=== PATIENT | female | born 1960 | race Two or more races ===

== ENCOUNTER → 2017-01-31 | Outpatient (CLI) | payer OTHER ==
[2016-07-07 10:45] VITALS: BP 113/64
[~2017-01-31] MED LIST: ASCO500T PO; HYDR-971 PO; OMEG500C PO; no meds
--- NOTE | 2017-02-03 09:14 | RAD ---
DATE: 01/31/2017 EXAM: DIGITAL SCREEN BILAT W/CAD HISTORY: Screening study. COMPARISON: 01/30/2016 This study was interpreted with the benefit of Computerized Aided Detection (CAD ). FINDINGS: Digital MLO and CC mammograms of both breasts were obtained. An additional CC digital mammogram of the left breast was obtained. Comparison study is dated 01/30/2016. The breast parenchyma is heterogeneously dense which can obscure a lesion on mammography (breast density code C). No spiculated mass is seen. No malignant appearing calcification or area of architectural distortion is noted. Since the previous examination there has been no significant interval change. IMPRESSION: BI-RADS Category 1, negative. There is no mammographic evidence of malignancy. Routine yearly screening mammography is recommended for follow-up. BI-RADS CATEGORY: 1 NEGATIVE RECOMMENDED FOLLOW-UP: 12M 12 MONTH FOLLOW-UP PQRS compliance statement: Patient information was entered into a reminder system with a target due date 01/31/2018 for the next mammogram. Mammography is a sensitive method for finding small breast cancers, but it does not detect them all and is not a substitute for careful clinical examination. A negative mammogram does not negate a clinically suspicious finding and should not result in delay in biopsying a clinically suspicious abnormality. "Our facility is accredited by the [employer] Mammography Program." MTDD
== END | disposition home or self-care (01) ==
LOC: MAMMO 14:45
PROVIDERS: ATTEND Family Medicine
DX: Z12.31 Encounter for screening mammogram for malignant neoplasm of breast (principal)
CPT/HCPCS: G0202; 77067

== ENCOUNTER → 2017-02-25 | Outpatient (CLI) | payer OTHER ==
[2016-07-07 10:45] VITALS: BP 113/64
[2017-02-25 08:45] LABS: BASO % 0 % (0-3); EOS % 1 % (0-3); HEMATOCRIT 41.2 % (36.0-47.0); HEMOGLOBIN 13.6 g/dL (12.0-15.5); LYMPH % 29 % (24-48); MEAN CORPUSCULAR HEMOGLOBIN 32 pg (25-35); MEAN CORPUSCULAR HGB CONC 33 g/dL (31-37); MEAN CORPUSCULAR VOLUME 95 fL (79-100); MONO % 7 % (0-9); NEUT % 63 % (31-73); PLATELET COUNT 288 x10^3/uL (140-400); RED BLOOD COUNT 4.32 x10^6/uL (3.50-5.40); RED CELL DISTRIBUTION WIDTH 12.8 % (11.5-14.5)
[2017-02-25 08:47] LABS: BILIRUBIN,URINE NEGATIVE (NEG); GLUCOSE,URINE NEGATIVE (NEG); NITRITE,URINE NEGATIVE (NEG); PROTEIN,URINE NEGATIVE (NEG-TRACE); UROBILINOGEN,URINE 0.2 mg/dL (0.2 mg/dL)
[2017-02-25 08:53] LABS: BACTERIA,URINE FEW /HPF (0-FEW); SQUAMOUS EPITHELIAL CELL,UR FEW /LPF
[2017-02-25 09:03] LABS: ALBUMIN 3.8 g/dL (3.4-5.0); ALBUMIN/GLOBULIN RATIO 1.1 (1.0-1.7); CALCIUM 8.9 mg/dL (8.5-10.1); CREATININE 0.7 mg/dL (0.6-1.0); GFR 86.2; TOTAL BILIRUBIN 1.1 mg/dL (0.2-1.0); TOTAL PROTEIN 7.4 g/dL (6.4-8.2)
[2017-02-25 09:06] LABS: CHOLESTEROL/HDL RATIO 3.6
[2017-02-25 09:12] LABS: NEG OBC FOB NEG; POS OBC FOB POS
[2017-02-26 01:11] LABS: VITAMIN D25(OH)TOTAL 61.8 ng/mL (30.0-100.0)
== END | disposition home or self-care (01) ==
LOC: LAB 06:34
PROVIDERS: ATTEND Family Medicine
DX: Z12.11 Encounter for screening for malignant neoplasm of colon (principal); R10.11 Right upper quadrant pain; E04.1 Nontoxic single thyroid nodule; E55.9 Vitamin D deficiency, unspecified; E78.5 Hyperlipidemia, unspecified
CPT/HCPCS: 36415; 80053; 80061; 81001; 82274; 82306; 83690; 84436; 84443; 84480; 85027; 87086

== ENCOUNTER → 2017-02-28 | Outpatient (CLI) | payer OTHER ==
[2016-07-07 10:45] VITALS: BP 113/64
--- NOTE | 2017-02-28 16:13 | RAD ---
Indication follow-up nodule. Grayscale imaging targeted to the thyroid was performed. Note is made of a previous examination 06/13/2016. The right lobe of the thyroid measures approximately 5.5 x 1.5 x 1.4 cm. No mass is seen. The isthmus appears normal. The left lobe of the thyroid measures 5.2 x 1.5 x 1.7 cm. Within the left lobe again seen is a heterogeneous nodule measuring approximately 1.2 cm in greatest dimension. It does not appear changed substantially when compared to the previous exam. IMPRESSION: Unchanged solitary nodule in the left lobe of the thyroid
== END | disposition home or self-care (01) ==
LOC: US 14:43
PROVIDERS: ATTEND Family Medicine
DX: E04.1 Nontoxic single thyroid nodule (principal)
CPT/HCPCS: 76536

== ENCOUNTER → 2017-03-12 | Outpatient (CLI) | payer OTHER ==
[2016-07-07 10:45] VITALS: BP 113/64
--- NOTE | 2017-03-12 09:32 | RAD ---
Abdominal ultrasound, 03/12/2017: History: Abdominal pain The gallbladder demonstrates a partial septation. No gallstones are seen. No gallbladder wall thickening is evident. The common hepatic duct is of normal caliber. There is no evidence of a hepatic mass. The visualized portions of the pancreas, spleen and both kidneys are unremarkable. The abdominal aorta is of normal caliber. The visualized portions of the inferior vena cava show no abnormality. No free fluid is evident in the abdomen. IMPRESSION: No significant abdominal abnormality is detected.
--- NOTE | 2017-03-12 12:01 | RAD ---
Indication pelvic pain. Initially transabdominal scans were obtained. Initial transabdominal scans were supplemented with transvaginal scans. It is uncertain whether the patient is pre-, jermaine . or postmenopausal. The uterus measures approximately 5.4 x 2 x 4.1 cm. Endometrial thickness is unremarkable at approximately 2.5 mm. Occasional nabothian cysts were noted during the exam. There is also a fluid collection at the fundus of the uterus measuring approximately 6 mm which may represent a degenerated fibroid. It is of doubtful clinical significance. The left ovary appeared unremarkable. The right ovary was not seen. No significant free fluid was identified. IMPRESSION: No significant finding. Nonvisualization of the right ovary. Low-density mass at the fundus of the uterus, likely incidental
== END | disposition home or self-care (01) ==
LOC: US 09:36
PROVIDERS: ATTEND Family Medicine
DX: R10.11 Right upper quadrant pain (principal); R10.2 Pelvic and perineal pain
CPT/HCPCS: 76700; 76856

== ENCOUNTER → 2017-11-28 | Outpatient (CLI) | payer OTHER | END | disposition home or self-care (01) | LOC: KCIC DEXA 09:04 | DX: N60.11 Diffuse cystic mastopathy of right breast (principal); M85.88 Other specified disorders of bone density and structure, other site; Z78.0 Asymptomatic menopausal state | CPT/HCPCS: 77066; 77080; G0279 ==

== ENCOUNTER → 2018-06-30 | Outpatient (CLI) | payer OTHER ==
[2016-07-07 10:45] VITALS: BP 113/64
[~2018-06-30] MED LIST changes: +CONTRAST GIVEN. MC PRN; +IOHEXOL 240 MG/ML 50ML VIAL. PO ONE; +IOHEXOL 300 MG/ML 100ML VIAL. IV ONE
--- NOTE | 2018-06-30 09:36 | RAD ---
PQRS Compliance Statement: One or more of the following individualized dose reduction techniques were utilized for this examination: 1. Automated exposure control 2. Adjustment of the mA and/or kV according to patient size 3. Use of iterative reconstruction technique CT abdomen/pelvis with contrast 06/30/2018 8:00 AM INDICATION: Right lower quadrant pain for 2 to 3 months. COMPARISON: None available TECHNIQUE: Multiple axial CT images of the abdomen and pelvis were obtained after the intravenous administration of 75 mL Omnipaque 300. Coronal and sagittal reformats are provided. FINDINGS: There is a 4 mm solid noncalcified pulmonary nodule in the inferior lingula (series 2, image 5). Heart size is within normal limits. In the medial segment left hepatic lobe, there is a hypoattenuating lesion with peripheral contrast puddling most suggestive of a hepatic hemangioma. This measures approximately 2.6 x 2.5 x 2.9 cm. Spleen is nonenlarged. There is a left adrenal nodule measuring 18 x 12 mm (Hounsfield units 80), which is indeterminate. The right adrenal gland is normal. Pancreas is normal in appearance. Gallbladder is present without adjacent inflammatory changes. The abdominal aorta is normal in course and caliber. There are no pathologically enlarged lymph nodes in the abdomen and pelvis. There is no abdominal free fluid. There is no free intraperitoneal air. The kidneys enhance symmetrically. There is no suspicious renal mass. There is no hydronephrosis. There are no suspected calculi within the kidneys, ureters or urinary bladder. Few scattered colonic diverticula are present. No significant inflammatory changes identified in the region of the terminal ileum. The appendix is normal in appearance. Oral contrast was administered. Opacified bowel loops demonstrate normal mucosal fold pattern. Mild bladder wall thickening may be secondary to underdistention. Uterus and adnexa appear normal. There is a superior endplate compression deformity involving L2 which appears chronic with approximately 50 percent height loss. IMPRESSION: 1. There is a 2.6 x 2.5 x 2.9 cm suspected hepatic hemangioma involving the medial segment left hepatic lobe. If there is persistent clinical concern or elevated liver function tests, this may be confirmed with MRI. 2. Terminal ileum is normal in appearance. Appendix is nondilated without adjacent inflammatory changes. 3. Chronic superior endplate compression deformity of L2 with approximately 50 percent height loss. 4. 4 mm solid noncalcified pulmonary nodule in the inferior lingula. Please refer the Fleischner 2017 pulmonary nodule guidelines for follow-up recommendations specific to this patient. Electronically signed by: Radha Aopnte MD (06/30/2018 9:33 AM) [facility]
== END | disposition home or self-care (01) ==
LOC: CT 07:27
PROVIDERS: ATTEND Internal Medicine Gastroenterology
DX: M43.8X6 Other specified deforming dorsopathies, lumbar region (principal); R91.1 Solitary pulmonary nodule; E55.9 Vitamin D deficiency, unspecified
CPT/HCPCS: 74177; Q9966; Q9967

== ENCOUNTER → 2018-07-22 | Day surgery (SDC) | payer OTHER ==
[~2018-07-22] MED LIST changes: -CONTRAST GIVEN. MC PRN; +HYDROmorphone 2 MG/ML VIAL IV PRN; -IOHEXOL 240 MG/ML 50ML VIAL. PO ONE; -IOHEXOL 300 MG/ML 100ML VIAL. IV ONE; +IV RINGERS,LACTATED 1000ML 1,000 ML IV SCH; +LIDOCAINE 1% PF 2 ML VIAL. ID PRN; +MORPHINE SULFATE 2 MG/ML VIAL. IV PRN; +ONDANSETRON PF 4 MG/2 ML VIAL. IV PRN; +PROCHLORPERAZINE 10 MG/2 ML VIAL. IV PRN; +fentaNYL PF VIAL 100 MCG/2 ML VIAL IV PRN
[2018-07-22 08:45] VITALS: BP 143/56
--- NOTE | 2018-07-22 13:07 | HP ---
ADMIT DATE: 07/22/2018 REASON FOR VISITATION: Right lower quadrant pain and bloating. HISTORY OF PRESENT ILLNESS: A 58-year-old female with past medical history noncontributory, seen with persistent right lower quadrant abdominal discomfort associated with bloating, which does now including weight loss, diarrhea, constipation. CT scan was unrevealing for intra-abdominal pathology. There has been no bleeding. Family history is unrevealing for colon cancer, colon polyp. With continued symptoms, colonoscopy is recommended. PAST MEDICAL HISTORY: Noncontributory. ALLERGIES: None. MEDICATIONS: None. SOCIAL HISTORY: Does not drink or smoke. FAMILY HISTORY: Noncontributory. REVIEW OF SYSTEMS: Per records. PHYSICAL EXAMINATION: GENERAL: Reveals a well-nourished, well-developed female, who is alert, cooperative, in no acute distress. VITAL SIGNS: Pulse 75, respirations 18. HEENT: Normocephalic and atraumatic. Pupils and extraocular muscles are not tested. Sclerae anicteric. NECK: Supple. LUNGS: Clear. CARDIOVASCULAR: Reveals an S1, S2 without S3, S4 or appreciable murmur. ABDOMEN: Reveals soft abdomen. Normoactive bowel sounds with mild right lower quadrant tenderness to palpation. EXTREMITIES: Reveal no cyanosis, clubbing or edema. IMPRESSION: Right lower quadrant abdominal pain, etiology is to be determined. Differential includes inflammatory bowel disease, chronic appendicitis, IBS, colon cancer. Therefore, recommend colonoscopy to further assess. Risks and benefits have been discussed. The patient is willing to proceed at this time. RAGHAVENDRA WHEELER MD DR: DIANNE/sarah JOB#: [id number] / [id number] ecc RECORDS, MEDICAL
--- NOTE | 2018-07-23 14:11 | PATHOLOGY ---
[facility] Accession Number: [id number] . 01 Material submitted: . PART A: SIGMOID POLYP PART B: DESCENDING COLON POLYP . 01 Clinician provided ICD-10: R10.31 . 01 Clinical history: . RLQ pain . 02 Diagnosis: A. Colon biopsy, sigmoid polyp: - Tubular adenoma. . B. Colon biopsy, descending colon polyp: - Tubular adenoma. (JPM:familia; 07/23/2018) QMS/07/23/2018 . 02 Comment: There is no high-grade dysplasia or evidence of malignancy. . 02 Electronically signed: . Elmer Montemayor MD, Pathologist NPI- [id number] . 01 Gross description: . A. The specimen is received in formalin, labeled "Naghipouraghda, Nayere, sigmoid polyp" and consists of a fragment soft brown tissue measuring 0.3 x 0.2 x 0.2 cm which is entirely submitted in A1. . B. The specimen is received in formalin, labeled "Naghipouraghda, Nayere, descending colon polyp" and consists of a fragment soft guevara tissue measuring 0.3 x 0.3 x 0.2 cm which is entirely submitted in B1. (SDY; 07/22/2018) SYU/SYU . 02 Pathologist provided ICD-10: D12.5, D12.4 . 02 CPT . 010973, [id number] Specimen Comment: A courtesy copy of this report has been sent to Specimen Comment: [phone], . Specimen Comment: Report sent to / DR CARRASQUILLO Specimen Comment: A duplicate report has been generated due to demographic updates. Performed at: [address] [place] [address] [facility] [address], [place], [place] [id number] MD Nathaniel Herring MD Phone: [phone] Performed at: [address] [id number] MD Elmer Montemayor MD Phone: [phone]
== END | disposition home or self-care (01) ==
LOC: SURG 06:59
PROVIDERS: ATTEND Internal Medicine Gastroenterology
DX: D12.4 Benign neoplasm of descending colon (principal); D12.5 Benign neoplasm of sigmoid colon; K64.0 First degree hemorrhoids; K21.9 Gastro-esophageal reflux disease without esophagitis; Z79.899 Other long term (current) drug therapy
CPT/HCPCS: 45380; 45385; 88305

== ENCOUNTER → 2018-07-31 | Outpatient (CLI) | payer OTHER ==
[2018-07-22 08:45] VITALS: BP 143/56
[~2018-07-31] MED LIST changes: -HYDROmorphone 2 MG/ML VIAL IV PRN; -IV RINGERS,LACTATED 1000ML 1,000 ML IV SCH; -LIDOCAINE 1% PF 2 ML VIAL. ID PRN; -MORPHINE SULFATE 2 MG/ML VIAL. IV PRN; -ONDANSETRON PF 4 MG/2 ML VIAL. IV PRN; -PROCHLORPERAZINE 10 MG/2 ML VIAL. IV PRN; +PROPOFOL 20 ML IV ONE; -fentaNYL PF VIAL 100 MCG/2 ML VIAL IV PRN
--- NOTE | 2018-07-31 16:53 | RAD ---
Thyroid ultrasound, 07/31/2018: HISTORY: Left thyroid nodule The right lobe of the gland measures 5.5 x 1.7 x 1.5 cm while the left lobe of the gland measures 5.4 x 1.8 x 1.6 cm. There is a heterogeneous solid nodule in the lower pole of the left lobe of the gland which measures 1.7 x 1.4 x 0.9 cm. Some of its margins are smooth while others are less clearly defined. The nodule is wider than tall. It appears to have increased in size since 02/28/2017 at which time it measured 1.1 x 1.2 x 0.5 cm. The gland is mildly heterogeneous. No other discrete nodule is seen. IMPRESSION: Enlarging solid nodule in the left lobe of the gland as described above. While its sonographic characteristics are nonspecific, the enlargement is of some concern. Ultrasound-guided biopsy is suggested for further evaluation. Electronically signed by: Atul Johnston MD (07/31/2018 4:51 PM) [facility]
== END | disposition home or self-care (01) ==
LOC: US 14:31
PROVIDERS: ATTEND Internal Medicine
DX: E04.1 Nontoxic single thyroid nodule (principal)
CPT/HCPCS: 76536; J2704

== ENCOUNTER → 2018-12-21 | Outpatient (CLI) | payer OTHER ==
[2018-07-22 08:45] VITALS: BP 143/56
[~2018-12-21] MED LIST changes: +HYDR-3164 PO; -HYDR-971 PO; -PROPOFOL 20 ML IV ONE
== END | disposition home or self-care (01) ==
LOC: LAB 14:05
PROVIDERS: ATTEND Obstetrics & Gynecology
DX: R35.0 Frequency of micturition (principal)
CPT/HCPCS: 87086

== ENCOUNTER → 2019-01-08 | Outpatient (CLI) | payer OTHER ==
[2018-07-22 08:45] VITALS: BP 143/56
--- NOTE | 2019-01-08 14:03 | RAD ---
PQRS Compliance statement: One or more of the following individualized dose reduction techniques were utilized for this examination: 1. Automated exposure control. 2. Adjustment of the mA and/or kV according to patient size. 3. Use of iterative reconstruction technique. Indication:LUNG NODULE NO PRIORS TECHNIQUE: CT chest none IV contrast with multiplanar reformats. COMPARISON:None FINDINGS: Heart is normal in size. No pericardial or pleural effusion. No enlarged axillary, mediastinal adenopathy. Evaluation of hilar lymphadenopathy is limited due to lack of IV contrast. Central airways are patent. 3 mm nodule in the right lower lobe (series 2 image 42). 4 mm nodular opacity in the right middle lobe (series 2 image 47). 3 mm ground glass nodule in the subpleural left lower lobe (series 2 image 50). mm nodular opacity in the lingula (series 2 image 36). Noncontrast appearance of the liver, spleen, kidneys, pancreas within normal limits. Left adrenal gland nodule is seen measuring 1.8 cm compatible with adrenal adenoma.. No suspicious bony lesion. Stable mild anterior compression deformity of the L1 vertebral body. IMPRESSION: Bilateral nodular opacities/nodules as described above. Follow-up CT chest in 6 months recommended. Electronically signed by: Nando Motley DO (01/08/2019 2:00 PM) [facility]
== END | disposition home or self-care (01) ==
LOC: CT 14:52
PROVIDERS: ATTEND Internal Medicine Critical Care Medicine
DX: R91.8 Other nonspecific abnormal finding of lung field (principal); M43.8X6 Other specified deforming dorsopathies, lumbar region; E27.8 Other specified disorders of adrenal gland
CPT/HCPCS: 71250

== ENCOUNTER → 2019-01-22 | Outpatient (CLI) | payer OTHER ==
[2018-07-22 08:45] VITALS: BP 143/56
--- NOTE | 2019-01-22 13:58 | RAD ---
DATE: 01/22/2019 EXAM: MAMMO ENRIQUETA SCREENING BILATERAL HISTORY: Routine screening COMPARISON: 11/28/2017 This study was interpreted with the benefit of Computerized Aided Detection (CAD). Breast Density: HETERO The breast parenchyma is heterogenously dense, which could reduce sensitivity of mammography. Breast parenchyma level C. FINDINGS: 2-D and 3-D tomosynthesis imaging was performed in CC and MLO projections. Benign-appearing lymph node type densities are again noted laterally on the left. No new or enlarging breast densities are seen. No suspicious microcalcifications are evident. IMPRESSION: Stable mammograms without evidence of malignancy. BI-RADS CATEGORY: 2 BENIGN FINDING(S) RECOMMENDED FOLLOW-UP: 12M 12 MONTH FOLLOW-UP PQRS compliance statement: Patient information was entered into a reminder system with a target due date for the next mammogram. Mammography is a sensitive method for finding small breast cancers, but it does not detect them all and is not a substitute for careful clinical examination. A negative mammogram does not negate a clinically suspicious finding and should not result in delay in biopsying a clinically suspicious abnormality. "Our facility is accredited by the [employer] Mammography Program."
== END | disposition home or self-care (01) ==
LOC: MAMMO 12:45
PROVIDERS: ATTEND Internal Medicine
DX: Z12.31 Encounter for screening mammogram for malignant neoplasm of breast (principal)
CPT/HCPCS: 77063; 77067

== ENCOUNTER → 2019-02-18 | Outpatient (CLI) | payer OTHER ==
[2018-07-22 08:45] VITALS: BP 143/56
--- NOTE | 2019-02-18 16:33 | RAD ---
EXAM: Thyroid sonogram. HISTORY: Thyroid nodule. TECHNIQUE: Sonographic imaging of the thyroid was performed.. COMPARISON: 07/31/2018. FINDINGS: The right there are lobe measures 5.2 x 1.7 x 1.8 cm. The left thyroid lobe measures 5.2 x 1.8 x 1.3 cm. The isthmus measures 3.6 mm. There is a heterogeneous predominantly solid hypoechoic nodule containing echogenic foci which may be due to microcalcifications within the inferior left thyroid lobe measuring 1.3 x 1.1 x 0.6 cm. This previously measured 1.7 x 1.5 x 0.9 cm. There is adjacent heterogeneous parenchyma within the mid left thyroid lobe. No additional discrete nodule is seen. IMPRESSION: Slight decreased size of a heterogeneous nodule within the inferior left thyroid lobe measuring 1.3 cm in maximum dimension, allowing for differences in measurement technique. There is stable adjacent heterogeneous bright within the mid zone of the left thyroid lobe. No additional discrete thyroid lesion is seen. Electronically signed by: Rafia Dc MD (02/18/2019 4:30 PM) [place] [id number]
== END | disposition home or self-care (01) ==
LOC: US 15:34
PROVIDERS: ATTEND Internal Medicine
DX: E04.1 Nontoxic single thyroid nodule (principal)
CPT/HCPCS: 76536

== ENCOUNTER → 2019-04-30 | Outpatient (CLI) | payer OTHER ==
[2018-07-22 08:45] VITALS: BP 143/56
[2019-04-30 07:10] LABS: BASO % 1 % (0-3); EOS # 0.1 x10^3/uL (0.0-0.7); EOS % 2 % (0-3); HEMATOCRIT 40.3 % (36.0-47.0); HEMOGLOBIN 13.5 g/dL (12.0-15.5); LYMPH # 2.4 x10^3/uL (1.0-4.8); LYMPH % 33 % (24-48); MEAN CORPUSCULAR HEMOGLOBIN 32 pg (25-35); MEAN CORPUSCULAR HGB CONC 34 g/dL (31-37); MEAN CORPUSCULAR VOLUME 96 fL (79-100); MONO # 0.5 x10^3/uL (0.0-1.1); MONO % 8 % (0-9); NEUT # 4.1 x10^3/uL (1.8-7.7); NEUT % 57 % (31-73); PLATELET COUNT 284 x10^3/uL (140-400); RED CELL DISTRIBUTION WIDTH 13.3 % (11.5-14.5); WHITE BLOOD COUNT 7.2 x10^3/uL (4.0-11.0)
[2019-04-30 07:20] LABS: ALBUMIN 3.6 g/dL (3.4-5.0); ALBUMIN/GLOBULIN RATIO 1.1 (1.0-1.7); CALCIUM 8.8 mg/dL (8.5-10.1); CREATININE 0.7 mg/dL (0.6-1.0); GFR 85.6; TOTAL BILIRUBIN 0.7 mg/dL (0.2-1.0)
[2019-04-30 07:27] LABS: BILIRUBIN,URINE NEGATIVE (NEG); CLARITY,URINE CLEAR; COLOR,URINE YELLOW; NITRITE,URINE NEGATIVE (NEG); PH,URINE 7.5; PROTEIN,URINE NEGATIVE (NEG-TRACE); UROBILINOGEN,URINE 0.2 mg/dL (0.2 mg/dL)
[2019-04-30 07:51] LABS: BACTERIA,URINE 0 /HPF (0-FEW); RBC,URINE 0 /HPF (0-2); SQUAMOUS EPITHELIAL CELL,UR MANY /LPF
[2019-05-01 00:07] LABS: HEMOGLOBIN A1C 5.5 % (4.8-5.6)
== END | disposition home or self-care (01) ==
LOC: LAB 06:27
PROVIDERS: ATTEND Internal Medicine
DX: Z00.00 Encounter for general adult medical examination without abnormal findings (principal)
CPT/HCPCS: 36415; 80053; 80061; 81001; 83036; 84443; 85025

== ENCOUNTER → 2019-06-07 | Outpatient (CLI) | payer OTHER ==
[2018-07-22 08:45] VITALS: BP 143/56
--- NOTE | 2019-06-07 15:36 | RAD ---
EXAM: Pelvic sonogram. HISTORY: Right lower quadrant pain. TECHNIQUE: Transabdominal and transvaginal sonographic imaging of the pelvis was performed. COMPARISON: CT dated 01/08/2019. FINDINGS: The uterus measures 5.9 x 3.8 x 2.5 cm. The endometrial stripe measures 2 mm in thickness. There is a 5 mm suspected cyst within the anterior uterine fundus or associated with the endometrium. The ovaries are normal in size and demonstrate normal blood flow. There is nabothian cysts within the cervix measuring 7 mm. There is no pelvic free fluid. IMPRESSION: 1. Thin endometrial stripe. There is a suspected 5 mm cyst along the anterior endometrium. 2. Sonographically unremarkable ovaries. 3. Nabothian cyst within the cervix. Electronically signed by: Rafia Dc MD (06/07/2019 3:33 PM) [id number]
== END | disposition home or self-care (01) ==
LOC: US 15:26
PROVIDERS: ATTEND Obstetrics & Gynecology
DX: N88.8 Other specified noninflammatory disorders of cervix uteri (principal)
CPT/HCPCS: 76830; 76856

== ENCOUNTER → 2019-09-20 | Outpatient (CLI) | payer OTHER ==
[2018-07-22 08:45] VITALS: BP 143/56
[~2019-09-20] MED LIST changes: +ASCO-219 PO; -ASCO500T PO
--- NOTE | 2019-09-21 09:02 | RAD ---
Clinical indications: Follow-up of thyroid nodule COMPARISON: February 18, 2019.. Findings: The longitudinal and AP and transverse dimensions of the right lobe of the thyroid gland are 5.2 cm x 1.7 cm x 1.5 cm respectively. The right lobe is homogeneous in appearance. The longitudinal and AP and transverse dimensions of the left lobe are 5.6 cm x 1.8 cm x 1.5 cm respectively. There is a small complex mainly isoechoic solid nodule within the lower pole measuring 14 mm x 7 mm x 13 mm in size. It measured 13 mm x 6 mm x 11 mm previously. Therefore, there has been no significant change in size given differences in the way the nodule is measured between studies. No calcifications are seen within it. This is a ACR TI RADS lesion 3. The isthmus is homogeneous in appearance and measures 0.34 cm in thickness. Impression: No significant change in size of nodule of the left lobe of the thyroid gland. Reference: ACR thyroid imaging, reporting and data system (TI-RADS): White paper of the ACR TI-RADS committee; J[employer]RNAL OF THE [employer]; volume 14, issue 5, pages 587-595 (February 2017) Electronically signed by: Linden Peralta MD (09/21/2019 8:59 AM) [facility]
== END | disposition home or self-care (01) ==
LOC: US 06:11
PROVIDERS: ATTEND Internal Medicine
DX: E04.1 Nontoxic single thyroid nodule (principal); Z79.899 Other long term (current) drug therapy
CPT/HCPCS: 76536

== ENCOUNTER → 2019-11-25 | Outpatient (CLI) | payer OTHER ==
[2018-07-22 08:45] VITALS: BP 143/56
[2019-11-25 07:03] LABS: BASO % 1 % (0-3); EOS # 0.1 x10^3/uL (0.0-0.7); EOS % 1 % (0-3); HEMATOCRIT 41.5 % (36.0-47.0); LYMPH # 1.8 x10^3/uL (1.0-4.8); LYMPH % 33 % (24-48); MEAN CORPUSCULAR HEMOGLOBIN 32 pg (25-35); MEAN CORPUSCULAR HGB CONC 34 g/dL (31-37); MEAN CORPUSCULAR VOLUME 96 fL (79-100); MONO # 0.5 x10^3/uL (0.0-1.1); MONO % 9 % (0-9); NEUT # 3.1 x10^3/uL (1.8-7.7); NEUT % 56 % (31-73); PLATELET COUNT 286 x10^3/uL (140-400); RED BLOOD COUNT 4.32 x10^6/uL (3.50-5.40); RED CELL DISTRIBUTION WIDTH 12.4 % (11.5-14.5); WHITE BLOOD COUNT 5.5 x10^3/uL (4.0-11.0)
[2019-11-25 07:04] LABS: BILIRUBIN,URINE NEGATIVE (NEG); CLARITY,URINE CLEAR; COLOR,URINE YELLOW; NITRITE,URINE NEGATIVE (NEG); PROTEIN,URINE NEGATIVE (NEG-TRACE); UROBILINOGEN,URINE 0.2 mg/dL (0.2 mg/dL)
[2019-11-25 07:10] LABS: ALBUMIN 3.8 g/dL (3.4-5.0); ALBUMIN/GLOBULIN RATIO 1.1 (1.0-1.7); CALCIUM 8.8 mg/dL (8.5-10.1); CREATININE 0.7 mg/dL (0.6-1.0); GFR 85.4; POTASSIUM 3.9 mmol/L (3.5-5.1); TOTAL BILIRUBIN 0.9 mg/dL (0.2-1.0); TOTAL PROTEIN 7.2 g/dL (6.4-8.2)
[2019-11-25 07:16] LABS: CHOLESTEROL/HDL RATIO 2.6
[2019-11-25 07:21] LABS: BACTERIA,URINE FEW /HPF (0-FEW); SQUAMOUS EPITHELIAL CELL,UR MOD /LPF
[2019-11-25 23:07] LABS: HEMOGLOBIN A1C 5.6 % (4.8-5.6)
== END | disposition home or self-care (01) ==
LOC: LAB 06:31
PROVIDERS: ATTEND Internal Medicine
DX: Z00.00 Encounter for general adult medical examination without abnormal findings (principal); E55.9 Vitamin D deficiency, unspecified
CPT/HCPCS: 36415; 80053; 80061; 81001; 82306; 83036; 84443; 85025

== ENCOUNTER → 2020-04-07 | Outpatient (CLI) | payer OTHER ==
[2018-07-22 08:45] VITALS: BP 143/56
[~2020-04-07] MED LIST changes: -ASCO-219 PO; +ASCO500T53 PO
--- NOTE | 2020-04-07 15:56 | RAD ---
EXAM: CT CHEST WITHOUT CONTRAST HISTORY: Lung nodule COMPARISON: CT chest 01/08/2019 TECHNIQUE: Helical CT of the chest performed without contrast. Coronal and sagittal reformats were obtained. One or more of the following individualized dose reduction techniques were utilized for this examination: 1. Automated exposure control 2. Adjustment of the mA and/or kV according to patient size 3. Use of iterative reconstruction technique. FINDINGS: Thyroid gland and thoracic inlet: Unremarkable. Heart and great vessels: Heart is normal in size. No pericardial effusion. Thoracic aorta is normal in caliber. Mediastinum and gissell: No lymphadenopathy. Lungs and pleura: Two 3 mm pulmonary nodules in the left upper lobe are unchanged (image 185 and 201, series 8). A 3 mm pulmonary nodule in the right lower lobe is unchanged (image 185 series 8). Additional 3 mm pulmonary nodule in the subpleural left lower lobe is unchanged (image 236, series 8). A 4 mm for nodule in the right middle lobe is unchanged (image 202, series 8). No new pulmonary nodule. Airways are clear. No pleural effusion. Chest wall and axillae: Normal. Upper abdomen: A 2.3 cm hypodense mass in segment IVb of the liver is unchanged in size. This previously had the appearance of a hemangioma with the administration of contrast. 1.5 cm left adrenal adenoma unchanged. Bones: An L1 compression fracture with moderate height loss is unchanged. No acute fracture. IMPRESSION: 1. There are few bilateral pulmonary nodules measuring 3 to 4 mm. These have been stable for over 12 months. No further follow-up indicated based on Fleischner Society guidelines. 2. Unchanged 2.3 similar hypodense mass in the liver, previously with the appearance of a hemangioma. Unchanged left adrenal adenoma. 3. Unchanged old L1 compression fracture. According to Fleischner Society Guidelines for solid pulmonary nodules (Radiology 2017; 000:1?16): In low risk multiple nodule patient: <6mm - No follow up required. 6-8mm - CT at 6-12 months, then consider CT at 18-24 months >8mm - CT at 6-12 months, then consider CT at 18-24 months Use most suspicious nodule as guide to management. Follow-up intervals may vary according to size and risk In high risk multiple nodule patient: <6mm - Optional 12 month follow up. 6-8mm - CT at 3-6 months, then CT at 18-24 months >8mm - CT at 3-6 months, then CT at 18-24 months Use most suspicious nodule as guide to management. Follow-up intervals may vary according to size and risk. Electronically signed by: Penny Barrios MD (04/07/2020 3:54 PM) [id number]
== END | disposition home or self-care (01) ==
LOC: CT 14:44
PROVIDERS: ATTEND Internal Medicine Critical Care Medicine
DX: R91.8 Other nonspecific abnormal finding of lung field (principal); M48.56XA Collapsed vertebra, not elsewhere classified, lumbar region, initial encounter for fracture; R16.0 Hepatomegaly, not elsewhere classified
CPT/HCPCS: 71250

== ENCOUNTER → 2020-04-11 | Outpatient (CLI) | payer OTHER ==
[2018-07-22 08:45] VITALS: BP 143/56
--- NOTE | 2020-04-12 11:47 | RAD ---
DATE: 04/11/2020 12:22 PM EXAM: MAMMO ENRIQUETA SCREENING BILATERAL HISTORY: Screening COMPARISON: 01/22/2019 Bilateral CC and MLO views of the breasts were performed. Bilateral breast tomosynthesis was performed in CC and MLO projections. This study was interpreted with the benefit of Computerized Aided Detection (CAD). FINDINGS: Breast Density: HETERO The breast parenchyma Is heterogeneously dense, which could reduce sensitivity of mammography. Breast parenchyma level C No suspicious masses, microcalcifications or architectural distortion is present to suggest malignancy in either breast. The visualized axillae are unremarkable. IMPRESSION: No mammographic evidence of malignancy. BI-RADS CATEGORY: 1 NEGATIVE RECOMMENDED FOLLOW-UP: 12M 12 MONTH FOLLOW-UP Annual screening mammography is recommended, unless clinically indicated sooner based on symptoms or change in physical exam. PQRS compliance statement: Patient information was entered into a reminder system with a target due date 04/12/2021 for the next mammogram. Mammography is a sensitive method for finding small breast cancers, but it does not detect them all and is not a substitute for careful clinical examination. A negative mammogram does not negate a clinically suspicious finding and should not result in delay in biopsying a clinically suspicious abnormality. "Our facility is accredited by the [employer] Mammography Program."
== END | disposition home or self-care (01) ==
LOC: MAMMO 15:30
PROVIDERS: ATTEND Obstetrics & Gynecology
DX: Z12.31 Encounter for screening mammogram for malignant neoplasm of breast (principal)
CPT/HCPCS: 77063; 77067

== ENCOUNTER → 2020-06-20 | Outpatient (CLI) | payer OTHER ==
[2018-07-22 08:45] VITALS: BP 143/56
[~2020-06-20] MED LIST changes: +SINCALIDE 1.18 MCG in IV NORMAL SALINE 50ML 30 ML IV ONE
--- NOTE | 2020-06-20 15:23 | RAD ---
HEPATOBILIARY SCAN WITH EJECTION FRACTION 06/20/2020 3:19 PM History: Nausea and vomiting. Reason: N/V / Spl. Instructions: / History: Procedure: Serial static images are obtained of the liver and biliary system in the frontal projection following IV administration of 5.5 mCi of Technetium 99m Choletec. After filling of the gallbladder, 1.2 mcg of sincalide were infused over 30 minutes and dynamic imaging continued over this period. The gallbladder ejection fraction was calculated. Findings: There is prompt hepatic clearance of tracer from the blood pool. There is homogeneous distribution throughout the liver. The gallbladder ejection fraction measures 97% (normal gallbladder EF is 35% or greater). IMPRESSION: 1. The cystic duct and common bile duct are patent. Negative for acute cholecystitis. 2. The gallbladder ejection fraction is normal Electronically signed by: Jose Elias Mathias MD (06/20/2020 3:20 PM) [id number]
== END | disposition home or self-care (01) ==
LOC: NM 08:44
PROVIDERS: ATTEND Internal Medicine Gastroenterology
DX: R11.2 Nausea with vomiting, unspecified (principal)
CPT/HCPCS: 78227; A9537; J2805

== ENCOUNTER → 2020-07-31 | Outpatient (CLI) | payer OTHER ==
[2018-07-22 08:45] VITALS: BP 143/56
[~2020-07-31] MED LIST changes: -SINCALIDE 1.18 MCG in IV NORMAL SALINE 50ML 30 ML IV ONE
== END ==
LOC: LAB 11:43
PROVIDERS: ATTEND Internal Medicine Gastroenterology
DX: Z01.812 Encounter for preprocedural laboratory examination (principal); Z20.828 Contact with and (suspected) exposure to other viral communicable diseases; R10.9 Unspecified abdominal pain
CPT/HCPCS: U0003-CS

== ENCOUNTER → 2020-08-02 | Day surgery (SDC) | payer OTHER ==
[~2020-08-02] MED LIST changes: +IV RINGERS,LACTATED 1000ML 1,000 ML IV SCH; +LIDOCAINE 2% PF 5 ML VIAL. ONE; +PROPOFOL 10 MG/ML (20ML) VIAL. IV ONE
[2020-08-02 09:02] VITALS: BP 106/67
--- NOTE | 2020-08-02 10:11 | HP ---
ADMIT DATE: 08/02/2020 REFERRING PHYSICIAN: Milena Alanis MD. HISTORY OF PRESENT ILLNESS: A 60-year-old female with past medical history significant for colon polyps, seen with epigastric and right upper quadrant abdominal pain. Had intermittent episodes of some emesis with the pain. No food intolerances are noted. No family history of gallbladder disease. Weight and appetite are stable. With the continued issues, she requests additional evaluation. Previous gallbladder workup has been unrevealing. PAST MEDICAL HISTORY: Colonic polyps, right upper quadrant pain, epigastric pain. ALLERGIES: None. MEDICATIONS: None. FAMILY AND SOCIAL HISTORY: She does not drink or smoke. She is employed at the hospital. REVIEW OF SYSTEMS: Per records. PHYSICAL EXAMINATION: GENERAL: Reveals a well-nourished, well-developed female. VITAL SIGNS: Temp is 97.8, pulse 76, respiratory rate 20. LUNGS: Clear. CARDIOVASCULAR: Reveals an S1, S2 without S3, S4 or appreciable murmur. ABDOMEN: Reveals a soft abdomen, normal bowel sounds, without appreciable hepatosplenomegaly. EXTREMITIES: Reveals no cyanosis, clubbing, or edema. IMPRESSION: Epigastric abdominal pain, etiology is to be determined. Differential includes gastroparesis, celiac disease, malignancy. Hepatobiliary disease is less likely in view of previous negative workup with imaging studies. Upper endoscopy is recommended. Risks and benefits of the procedure including risk of hemorrhage and perforation have been discussed with the patient who is willing to proceed at this time. RAGHAVENDRA WHEELER MD DR: DIANNE/sarah JOB#: [id number] / [id number]
--- NOTE | 2020-08-04 13:08 | PATHOLOGY ---
[facility] Accession Number: [id number] . 01 Material submitted: . duodenum - DUODENAL BX'S . 01 Clinical history: . ABD PAIN, N/V . 02 Diagnosis: Small bowel "duodenum", endoscopic biopsy: - Duodenal mucosa demonstrating Humera's gland hyperplasia; negative for dysplasia and malignancy. (MLK:pit; 08/04/2020) QTP 08/04/2020 1232 Local . 02 Electronically signed: . Mariajose Pack MD, Pathologist NPI- [id number] . 01 Gross description: . The specimen is received in formalin, labeled "Akashe Songagfrancoa, duodenal biopsies". Received are multiple segments of pale guevara soft tissue ranging in size from 0.2 to 0.4 cm in maximum dimensions. The specimen is submitted entirely in cassette A1. ([facility]; 08/02/2020) QA/QA 08/02/2020 1751 Local . 02 Pathologist provided ICD-10: R10.9 . 02 CPT . 215710 Specimen Comment: A courtesy copy of this report has been sent to [phone], [phone] Specimen Comment: [id number] Specimen Comment: Report sent to / DR CARRASQUILLO Performed at: 01 [facility] [address], [place], [place] [id number] MD Nathaniel Herring MD Phone: [phone] Performed at: 02 [facility] [address] [place] [address], [place] [id number] MD Elmer Montemayor MD Phone: [phone]
== END ==
LOC: ENDOS 07:31
PROVIDERS: ATTEND Internal Medicine Gastroenterology
DX: R10.13 Epigastric pain (principal); K90.0 Celiac disease; K31.84 Gastroparesis; E78.5 Hyperlipidemia, unspecified; K21.9 Gastro-esophageal reflux disease without esophagitis; Z86.010 Personal history of colon polyps; Z79.899 Other long term (current) drug therapy
CPT/HCPCS: 43239; 87426; 88305; J2704

== ENCOUNTER → 2021-02-02 | Outpatient (CLI) | payer OTHER ==
[2020-08-02 09:02] VITALS: BP 106/67
[~2021-02-02] MED LIST changes: -IV RINGERS,LACTATED 1000ML 1,000 ML IV SCH; -LIDOCAINE 2% PF 5 ML VIAL. ONE; -PROPOFOL 10 MG/ML (20ML) VIAL. IV ONE
[2021-02-02 08:45] LABS: BASO % 0 % (0-3); EOS # 0.1 x10^3/uL (0.0-0.7); EOS % 1 % (0-3); HEMATOCRIT 39.3 % (36.0-47.0); HEMOGLOBIN 13.1 g/dL (12.0-15.5); LYMPH # 1.7 x10^3/uL (1.0-4.8); LYMPH % 31 % (24-48); MEAN CORPUSCULAR HEMOGLOBIN 32 pg (25-35); MEAN CORPUSCULAR HGB CONC 34 g/dL (31-37); MEAN CORPUSCULAR VOLUME 95 fL (79-100); MONO # 0.5 x10^3/uL (0.0-1.1); MONO % 8 % (0-9); NEUT # 3.3 x10^3/uL (1.8-7.7); NEUT % 60 % (31-73); PLATELET COUNT 257 x10^3/uL (140-400); RED BLOOD COUNT 4.14 x10^6/uL (3.50-5.40); WHITE BLOOD COUNT 5.6 x10^3/uL (4.0-11.0)
[2021-02-02 09:05] LABS: ALBUMIN 4.2 g/dL (3.4-5.0); ALBUMIN/GLOBULIN RATIO 1.3 (1.0-1.7); CALCIUM 8.7 mg/dL (8.5-10.1); CREATININE 0.6 mg/dL (0.6-1.0); GFR 101.6; POTASSIUM 3.9 mmol/L (3.5-5.1); TOTAL BILIRUBIN 1.4 mg/dL (0.2-1.0); TOTAL PROTEIN 7.4 g/dL (6.4-8.2)
[2021-02-02 09:06] LABS: CHOLESTEROL/HDL RATIO 2.7
[2021-02-02 10:56] LABS: BILIRUBIN,URINE NEGATIVE (NEG); CLARITY,URINE CLEAR; COLOR,URINE YELLOW; NITRITE,URINE NEGATIVE (NEG); PH,URINE 5.5 (<5.0-8.0); PROTEIN,URINE NEGATIVE (NEG-TRACE); UROBILINOGEN,URINE 0.2 mg/dL (0.2 mg/dL)
[2021-02-02 11:16] LABS: BACTERIA,URINE 0 /HPF (0-FEW); RBC,URINE 0 /HPF (0-2); WBC,URINE 0 /HPF (0-4)
[2021-02-03 01:13] LABS: HEMOGLOBIN A1C 5.6 % (4.8-5.6)
== END ==
LOC: LAB 06:50
PROVIDERS: ATTEND Internal Medicine
DX: Z00.00 Encounter for general adult medical examination without abnormal findings (principal); E55.9 Vitamin D deficiency, unspecified
CPT/HCPCS: 36415; 80053; 80061; 81001; 82306; 83036; 84443; 85025

== ENCOUNTER → 2021-02-08 | Outpatient (CLI) | payer OTHER ==
[2020-08-02 09:02] VITALS: BP 106/67
--- NOTE | 2021-02-08 15:57 | KCIC ---
Bilateral digital screening mammograms with 3-D tomosynthesis: Reason for examination: Routine screening. Comparison is made to previous studies dated back to 01/30/2016. Bilateral mammograms in CC and oblique projections were obtained with 2-D imaging and 3-D tomosynthes is imaging on a Siemens Inspiration unit and reviewed on the workstation. Interpretation was made wit h the benefit of CAD. The skin and nipples show no abnormalities. No abnormal axillary lymph nodes are seen. The breast par enchyma is extremely dense. (Breast density: Category D.) There are no dominant masses, suspicious ca lcifications or architectural distortion. Impression: No evidence of malignancy. Recommend routine screening. Your patient's mammogram demonstrates that she has dense breast tissue (breast density category C or D), which could hide abnormalities, and if she has other risk factors for breast cancer that have bee n identified, she might benefit from supplemental screening tests that may be suggested by you as her ordering physician. Dense breast tissue, in and of itself, is a relatively common condition. Therefo re, this information is not provided to cause undue concern, but rather to raise your awareness and t o promote discussion with your patient regarding the presence of other risk factors, in addition to d ense breast tissue. Your patient's mammography results will be sent to her. BI-RAD Category 1: Negative. "Our facility is accredited by the [employer] Mammography Program." This patient's information has been entered into a reminder system for the patient to be notified wit h the results of her examination and a target date for the next mammogram. Electronically signed by: Geraldine Coley MD (02/08/2021 3:55 PM) [id number]
--- NOTE | 2021-02-09 08:25 | KCIC ---
EXAM: DUAL ENERGY X-RAY ABSORPTIOMETRY (DEXA). HISTORY: Postmenopausal screening. FINDINGS: The lowest measured T-score is -1.6 in the left hip, based on a bone mineral density of 0.7 42 g/cm^2. Refer to the worksheets for full detail. There has been a 3.4 percent decrease in density of the left hip and 0.5 percent increase in density of the lumbar spine compared to a study performed 11/28/2017. IMPRESSION: 1. Low bone mass. Bone mineral density yields a T-score between -1.0 and -2.5. Fracture risk is incre ased. 2. FRAX report: Not calculated. METHODOLOGY: Dual energy x-ray absorptiometry was performed to measure bone mineral density. The foll owing analysis is based on the 2019 Official Positions of the International Society for Clinical Dens itometry: Measurements of the hips and the average of L1-L4 are preferred. When the spine and/or hip cannot be feasibly measured or interpreted, or in the setting of hyperparathyroidism, distal radial bone minera l density may be measured. The lumbar spine T-score is based on the average bone mineral density of L1-L4. In the setting of art ifact or anatomic abnormality, some lumbar levels may be excluded, and the remaining levels used for calculation. A single lumbar level is not used for diagnosis, and if only a single level is available for assessment, another anatomic site will be used to assign a diagnosis. The hip T-score is based on the bone mineral density measurement of the femoral neck or total proxima l femur of either side, whichever is lowest. Bilateral mean values are not used for diagnosis. The forearm T-score is derived from 33% of the distal radius of the nondominant forearm. Electronically signed by: Rafia Dc MD (02/09/2021 8:23 AM) [id number]
== END ==
LOC: KCIC DEXA 14:47
PROVIDERS: ATTEND Internal Medicine
DX: Z12.31 Encounter for screening mammogram for malignant neoplasm of breast (principal); Z78.0 Asymptomatic menopausal state; M89.9 Disorder of bone, unspecified
CPT/HCPCS: 77063; 77067; 77080

== ENCOUNTER → 2021-06-13 | Outpatient (CLI) | payer OTHER ==
[2020-08-02 09:02] VITALS: BP 106/67
[~2021-06-13] MED LIST changes: +ALBU2.5V8 INH; +ATOR10TA60 PO; +AZIT250T PO; +BUDE0.5A NEB; +CEPH-263 PO; +IPRA3AMP29 NEB; +LACT1CAP19 PO; +NITR100C62 PO; +PRED-220 PO; +PRED20TA PO; +PRED50TA PO; +SERT-267 PO
== END ==
LOC: LAB 08:59
PROVIDERS: ATTEND Internal Medicine Pulmonary Disease
DX: R51.9 Headache, unspecified (principal); R53.81 Other malaise; R11.2 Nausea with vomiting, unspecified; Z20.822 Contact with and (suspected) exposure to COVID-19
CPT/HCPCS: U0003; U0005

== ENCOUNTER → 2021-07-24 | Outpatient (CLI) | payer OTHER ==
[2020-08-02 09:02] VITALS: BP 106/67
== END ==
LOC: SPEC 10:56
PROVIDERS: ATTEND Obstetrics & Gynecology
DX: R10.2 Pelvic and perineal pain (principal)
CPT/HCPCS: 87086

== ENCOUNTER → 2021-08-02 | Outpatient (CLI) | payer OTHER ==
[2020-08-02 09:02] VITALS: BP 106/67
--- NOTE | 2021-08-02 16:49 | RAD ---
EXAM: Pelvic ultrasound HISTORY: Pelvic pain. COMPARISON: None. FINDINGS: Sonographic evaluation of the pelvis was performed transabdominally and transvaginally. The uterus is anteverted and measures 5.8 x 3.5 x 2.1 cm. The endometrial stripe measures 2 mm. No ma sses are identified. There is no significant free fluid. The right ovary is obscured currently. The left ovary measures 1.4 x 1.3 x 1.0 cm. There is normal Do ppler flow bilaterally. There are no suspicious lesions. IMPRESSION: 1. No cause for pain is identified sonographically. 2. The right ovary is not visualized currently. Electronically signed by: Tez Healy MD (08/02/2021 4:47 PM) [id number]
== END ==
LOC: US 15:30
PROVIDERS: ATTEND Obstetrics & Gynecology
DX: R10.2 Pelvic and perineal pain (principal)
CPT/HCPCS: 76830; 76856

== ENCOUNTER → 2021-09-28 | Outpatient (CLI) | payer OTHER ==
[2020-08-02 09:02] VITALS: BP 106/67
--- NOTE | 2021-10-01 08:23 | RAD ---
US THYROID History: Reason: Thyroid nodule / Spl. Instructions: / History: Comparison: September 20, 2019 Technique: Multiple grayscale and color Doppler images of the thyroid gland were obtained. Findings: Right thyroid lobe: 5.5 x 1.7 x 1.5 cm. Homogeneous echotexture. Left thyroid lobe: 5.5 x 1.9 x 1.5 cm. Homogeneous echotexture. Isthmus: 0.3 cm. -Solid predominantly isoechoic left inferior thyroid nodule measures 1.5 x 1.3 x 0.8 cm. TI-RADS 3. S imilar compared to prior. -Several smaller left thyroid cystic lesions. ACR Thyroid Imaging, Reporting And Data System (TI-RADS): White Paper Of The ACR TI-RADS Committee. J ournal of the [employer], volume 14, issue 5, pages 587-595 (February 2017). IMPRESSION: 1. TI-RADS 3 left thyroid nodule, similar compared to prior. Recommend one-year ultrasound follow-up . Electronically signed by: Kartik Sethi DO (10/01/2021 8:21 AM) [id number]
== END ==
LOC: US 12:50
PROVIDERS: ATTEND Internal Medicine
DX: E04.1 Nontoxic single thyroid nodule (principal)
CPT/HCPCS: 76536

== ENCOUNTER → 2022-01-25 | Outpatient (CLI) | payer OTHER ==
[2020-08-02 09:02] VITALS: BP 106/67
--- NOTE | 2022-01-25 16:20 | RAD ---
Examination: MRI of the left shoulder without contrast HISTORY: History of left shoulder pain COMPARISON: None available TECHNIQUE: Multiplanar, multisequence MR imaging of the left shoulder were performed without contrast FINDINGS: There is mild medial subluxation of the long head of the biceps tendon within the bicipital groove. T he subscapularis tendon grossly appears intact. There is small focus of full-thickness tear measuring 1.2 cm at the junction of the anterior fibers of the supraspinatus tendon with the subscapularis ten don with small extension of fluid in the subacromial subdeltoid bursa. Mild increased T2 signal ident ified in the subscapularis, supraspinatus, infraspinatus tendons likely tendinosis. The visualized labrum grossly appears intact. The muscle bulk grossly appears unremarkable. The acromion is type II. Mild obscuration of fat in the rotator interval. IMPRESSION: 1. Full-thickness tear measuring 1.2 cm at the junction of the anterior fibers of the supraspinatus tendon with the subscapularis tendon with small extension of fluid in the subacromial subdeltoid burs a. 2. Mild medial subluxation of the long head of the biceps tendon within the bicipital groove. 3. Mild obscuration of fat in the rotator interval. Correlate for adhesive capsulitis. Electronically signed by: Raheem Lowery MD (01/25/2022 4:18 PM) [id number]
== END ==
LOC: MRI 15:15
PROVIDERS: ATTEND Physical Medicine & Rehabilitation
DX: S43.081A Other subluxation of right shoulder joint, initial encounter (principal); M75.121 Complete rotator cuff tear or rupture of right shoulder, not specified as traumatic; M75.51 Bursitis of right shoulder; X58.XXXA Exposure to other specified factors, initial encounter; Y93.89 Activity, other specified; Y92.89 Other specified places as the place of occurrence of the external cause; Y99.8 Other external cause status
CPT/HCPCS: 73221

== ENCOUNTER → 2022-01-31 | Outpatient (CLI) | payer OTHER ==
[2020-08-02 09:02] VITALS: BP 106/67
[2022-01-31 09:26] LABS: BASO % 1 % (0-3); EOS # 0.1 x10^3/uL (0.0-0.7); EOS % 1 % (0-3); HEMATOCRIT 39.3 % (36.0-47.0); LYMPH # 1.7 x10^3/uL (1.0-4.8); LYMPH % 26 % (24-48); MEAN CORPUSCULAR HEMOGLOBIN 31 pg (25-35); MEAN CORPUSCULAR HGB CONC 33 g/dL (31-37); MEAN CORPUSCULAR VOLUME 95 fL (79-100); MONO # 0.4 x10^3/uL (0.0-1.1); MONO % 7 % (0-9); NEUT # 4.4 x10^3/uL (1.8-7.7); NEUT % 66 % (31-73); PLATELET COUNT 271 x10^3/uL (140-400); RED BLOOD COUNT 4.14 x10^6/uL (3.50-5.40); RED CELL DISTRIBUTION WIDTH 12.7 % (11.5-14.5); WHITE BLOOD COUNT 6.6 x10^3/uL (4.0-11.0)
[2022-01-31 09:32] LABS: BACTERIA,URINE 0 /HPF (0-FEW)
[2022-01-31 10:49] LABS: ALBUMIN/GLOBULIN RATIO 1.1 (1.0-1.7); CALCIUM 8.6 mg/dL (8.5-10.1); CREATININE 0.6 mg/dL (0.6-1.0); GFR 101.3; POTASSIUM 3.6 mmol/L (3.5-5.1); TOTAL BILIRUBIN 1.1 mg/dL (0.2-1.0); TOTAL PROTEIN 7.5 g/dL (6.4-8.2)
[2022-02-02 11:11] LABS: HEMOGLOBIN A1C 5.8 % (4.8-5.6); THYROXINE 5.8 ug/dL (4.5-12.0)
== END ==
LOC: LAB 08:45
PROVIDERS: ATTEND Internal Medicine
DX: D34 Benign neoplasm of thyroid gland (principal); E04.1 Nontoxic single thyroid nodule; R73.09 Other abnormal glucose; E55.9 Vitamin D deficiency, unspecified
CPT/HCPCS: 36415; 80053; 81001; 82306; 83036; 84436; 84439; 84443; 84479; 85025

== ENCOUNTER → 2022-02-11 | Outpatient (CLI) | payer OTHER ==
[2020-08-02 09:02] VITALS: BP 106/67
--- NOTE | 2022-02-11 17:53 | RAD ---
Bilateral digital screening 2-D and 3-D (tomosynthesis) mammogram: Reason for examination: Routine screening. Comparison is made to previous mammograms from 02/08/2021 and 04/11/2020. Bilateral mammograms in CC and oblique projections were obtained with 2-D imaging and 3-D tomosynthes is imaging and reviewed on the workstation. Interpretation was made with the benefit of CAD. Findings: Breast density: Category C. The breasts are heterogeneously dense, which may obscure small masses. There are no new suspicious masses, malignant appearing calcifications or architectural distortion. Impression: No evidence of malignancy. ASSESSMENT: BI-RADS 1. Negative. Recommendations: Routine screening mammograms. This patient's information has been entered into a reminder system for the patient to be notified wit h the results of her examination and a target date for the next mammogram. Your patient's mammogram demonstrates that she has dense breast tissue (breast density category C or D), which could hide abnormalities, and if she has other risk factors for breast cancer that have bee n identified, she might benefit from supplemental screening tests that may be suggested by you as her ordering physician. Dense breast tissue, in and of itself, is a relatively common condition. Therefo re, this information is not provided to cause undue concern, but rather to raise your awareness and t o promote discussion with your patient regarding the presence of other risk factors, in addition to d ense breast tissue. Electronically signed by: Jaqueline Garcias MD (02/11/2022 5:50 PM) [id number]
== END ==
LOC: MAMMO 15:06
PROVIDERS: ATTEND Internal Medicine
DX: Z12.31 Encounter for screening mammogram for malignant neoplasm of breast (principal)
CPT/HCPCS: 77063; 77067